=== PATIENT | female | born 1975 | race Two or more races ===

== ENCOUNTER 2023-12-23 06:34 | Day surgery (SDC) | payer OTHER ==
[2023-12-23] MEDS ORDERED: MIDAZOLAM HCL 2 MG/2 ML VIAL IV ONE (11:00)
[2023-12-23] MEDS ORDERED: fentaNYL CITRATE 50 MCG/ML AMPUL IV PUSH ONE (11:00)
== END 2023-12-23 12:50 | disposition home or self-care (01) ==
LOC: AMB-ENDOS 06:34 → CIR.AMB 13:30
PROVIDERS: ATTEND Colon & Rectal Surgery
DX: Z12.11 Encounter for screening for malignant neoplasm of colon (principal); R19.5 Other fecal abnormalities